=== PATIENT | male | born 2000 | race Hispanic/Latino ===

== ENCOUNTER 2025-03-03 18:02 | Emergency (ER) | payer SELFPAY ==
[~2025-03-03] VITALS: Ht 170.2 cm; Wt 83.9 kg
--- NOTE | 2025-03-03 19:20 | NUR ---
PT PLACED INTO HALLWAY BED AT THIS TIME FROM THE LOBBY, NO SIGNS OF ACUTE DISTRESS NOTED
--- NOTE | 2025-03-03 19:45 | NUR ---
WOUND CARE TO LEFT THUMB DONE AT THIS TIME, TOLERATED WELL
--- NOTE | 2025-03-03 19:46 | ERN ---
ED Note History of Present Illness Stated Complaint: PUNCTURE WOUND BETWEEN LT THUMB AND INDEX FINGER Chief Complaint: Puncture Wound Time Seen by MD: 18:07 Time Seen by Midlevel: 18:07 Dictation: The patient is a 24-year-old male with no past medical history who presents to the emergency department with complaints of wound to his left 1st finger after he accidentally drilled a nail about 30 minutes prior to arrival.. Nail was removed. Patient reports unknown last tetanus. Allergies: Coded Allergies: No Known Allergies (Unverified Allergy, Unknown, 03/03/25) Home Meds Active Scripts Clindamycin HCl (Clindamycin HCl) 300 Mg Capsule, 1 CAP PO QID for 5 Days, #20 CAP 0 Refills Prov:SUSANA PARTIDA STUDENT ADMISSIONS CLERK 03/03/25 Past Medical History Past Medical History: No Pertinent History Surgical History: None RN Note Reviewed/Agreed w/PFSH: Yes Review of System Dictation Constitutional: Negative for fever,chills, and weight loss Eyes: Negative for injury, pain,redness, and discharge ENT: Negative for injury,pain or swelling Cardiovascular: Negative for chest pain, palpitations, and edema Respiratory: Negative for shortness of breath, cough, and wheezing, Abdomen/GI: Negative for abdominal pain, nausea, vomiting, diarrhea, and constipation Back: Negative for injury and pain : Negative for injury, bleeding and discharge MS/Extremity: Negative for injury and deformity Skin: Negative for rash, and discoloration positive for puncture wound to left hand Neuro: Negative for headache, weakness, numbness, tingling, and seizure Psych: Negative for suicide ideation, homicidal ideation, and hallucinations Initial Vital Sign VS Vital Signs Date Time Temp Pulse Resp B/P (MAP) Pulse Ox O2 Delivery O2 Flow Rate FiO2 03/03/25 18:07 97.7 56 20 125/78 99 Room Air 03/03/25 19:30 0 21 Physical Exam Dictation Vital Signs reviewed General Appearance: Alert, oriented x 3, no acute distress, well developed, nourished. Head and Face: non-traumatic. Eyes: PERRL, pink conjunctivas, eyelid no trauma, anterior chamber with arcus senilis. Ears: Pinnas intact and no signs of trauma or erythema ear canals clear and no discharge TM no erythema Nose: No discharge, no bleeding. Oropharynx: Mouth normal, tongue pink. pharynx clear,no erythema, tonsils no exudates, no abscesses noted, mucous membrane moist Neck: Supple, non-tender, no thyromegaly, no masses, no JVD, no bruits Breast:Deferred Chest:No tenderness, no crepitus, no paradoxical movement, no retractions Lungs:Clear, well-ventilated, symmetric, no rales, no wheezing, no rhonchi, no stridor, good breath sounds bilaterally Heart: Regular rate, regular rhythm, no murmur, no gallops Vascular: no peripheral edema, Abdomen: Soft, positive bowel sounds, nondistended, no guarding, nontender, no rebound, no masses no hepatomegaly, no splenomegaly, no Piña's sign, no hernias. Rectal: Deferred Genital: Deferred Neurological: Normal speech, motor function intact, sensory function intact Musculoskeletal: Neck nontender, full range of motion, back nontender, full range of motion, Extremities: nontender, full range of motion Skin: Color pink, dry, no turgor, no rash, no lacerations, no abrasions, no contusions. small less than 0.5cm puncture wound to left 1st finger, no active bleeding. Lymphatic: Deferred Results (Laboratory/Radiology) Laboratory/Radiology REASON: 1st finger injury ORDERING PHYSICIAN: SUSANA PARTIDA STUDENT ADMISSIONS CLERK PROCEDURE: FINGER LT - FINGER(S) 2+VWS LT EXAM: Left finger radiograph 3 view HISTORY: Injury COMPARISON: None TECHNIQUE: AP, lateral, oblique view of the hand FINDINGS: Tiny hyperdense foci noted along the first IP joint. Air seen in the soft tissues. No fracture or dislocation. IMPRESSION: Possible soft tissue injury with possible tiny hyperdense foreign object /[facility] Reviewed?: Yes ED Course ED Course Orders Procedure Category Date Status Time Tetanus,Diphtheria PHA 03/03/25 Complete Tox [Adult] (Diphther 18:30 Finger(S) 2+Vws Lt RAD 03/03/25 Resulted 18:22 Wound Care (Er) CPOE 03/03/25 Transmitted 18:22 Lidocaine Hcl 1% 20ml PHA 03/03/25 In Process Vial (Lidocaine Hc 20:00 Current Medications Medications (Trade) Dose Ordered Sig/Fidel Route PRN Reason Start Time Stop Time Status Last Admin Dose Admin Lidocaine HCl (Lidocaine HCl 1% 20ml Vial) 10 ml ONCE INJ 03/03/25 20:00 03/03/25 23:59 03/03/25 20:04 Tetanus/ Diphtheria Toxoids Adsorbed (DiphthERIA-teTANUS TOXOID [ADULT]/ DECAVAC) 0.5 ml ONCE ONCE IM 03/03/25 18:30 03/03/25 18:31 DC 03/03/25 19:48 Vital Signs Date Time Temp Pulse Resp B/P (MAP) Pulse Ox O2 Delivery O2 Flow Rate FiO2 03/03/25 19:30 98.4 79 18 124/77 97 Room Air* 0 21 03/03/25 18:07 97.7 56 20 125/78 99 Room Air Medical Decision Making MDM The patient is a 24-year-old male with no past medical history who presents to the emergency department with complaints of wound to his left 1st finger after he accidentally drilled a nail about 30 minutes prior to arrival.. Nail was removed. Patient reports unknown last tetanus. Patient with a small puncture wound near the base of the 1st finger. No active bleeding, x-ray showed no fractures. Small foreign body which was attempted to remove patient's wound was sutured. Patient was updated with Tdap. We will be discharged to follow up with PCP. Differential diagnosis: Finger fracture, laceration, puncture wound Need for hospitalization: Patient does not meet criteria for hospitalization. There are no social concerns with this patient. Procedure Procedure Dictation: Time and Date Performed: 03/03/20252021 INDICATION: Laceration Location: Left hand Informed consent was obtained. Pre-procedure time out was obtained. Anesthetic: 1% lidocaine Manual prep of skin and wound was done with hibbarbns. Foreign Body: NO foreign bodies were identified. foreign body attempted removal. Length Repaired:0.5cm Suture used: 3.0 ethylone # of simple sutures:1 Aseptic technique was used during the entire procedure. Wound Location: upper extremity Wound Length (cm): 1 Wound's Depth, Shape: superficial Wound Explored: clean Irrigated w/ Saline (ccs): 50 Betadine Prep?: Yes Anesthesia: 1% Lidocaine Volume Anesthetic (ccs): 10 Wound Debrided: minimal Wound Repaired With: sutures Suture Size/Type: 3:0, nylon Number of Sutures: 1 Layer Closure?: Yes DX & DISP Disposition: Discharge Departure Impression: Primary Impression: Puncture wound of left hand Condition: Stable Scripts Clindamycin HCl (Clindamycin HCl) 300 Mg Capsule 1 CAP PO QID for 5 Days, #20 CAP 0 Refills Prov: SUSANA PARTIDA 03/03/25 Additional Instructions: Keep your stitches clean and dry. Do not put your stitches under water, such as in a bath, pool, or redding. This can slow healing and raise your chance of getting an infection. Avoid activities or sports that could hurt the area of your stitches for 1-2 weeks. You should call your doctor if you develop any fever, redness or swelling around the cut, or pus draining from the cut. Your sutures will need to be removed in 10-14 days. FOLLOW-UP WITH PRIMARY CARE PROVIDER IN 1 TO 2 DAYS. TAKE MEDICATIONS DIRECTED HERE IN THE EMERGENCY ROOM. OKAY TO CONTINUE HOME MEDICATIONS UNLESS OTHERWISE DISCUSSED DURING YOUR VISIT IN THE EMERGENCY ROOM TODAY. RETURN TO YOUR NEAREST EMERGENCY ROOM IF SYMPTOMS WORSEN OR IF THERE IS NO IMPROVEMENT. CALL 911 IF YOU NEED IMMEDIATE ASSISTANCE. TAKE TYLENOL [id number] NEEDED AND IF NO CONTRAINDICATIONS ARE PRESENT. INCREASE ORAL HYDRATION. A WOUND CULTURE OR URINE CULTURE WAS ORDERED HERE IN THE EMERGENCY ROOM DEPARTMENT PLEASE FOLLOW-UP WITH PRIMARY CARE PROVIDER AND ADVISE THEM TO GET REPEAT PORTS FROM OUR FACILITY. IF YOU HAD ANY JENNIFER WRAP/SPLINTS THAT WERE APPLIED HERE, PLEASE DO NOT REMOVE THEM UNTIL YOU SEE YOUR PRIMARY CARE OR SPECIALTY. Referrals: SELF,REFERRAL (PCP) Time of Disposition: 19:45 I have reviewed the case, and I agree with, Diagnosis and Plan SUSANA PARTIDA Mar 03, 2025 19:46
[2025-03-03] MEDS ORDERED: CLIN-141 PO (19:49)
[2025-03-03] MEDS: LIDOCAINE HCL 1% 20 ML VIAL INJ SCH (20:04)
[2025-03-03 20:30] VITALS: BP 121/74; PULSE 74; RESP 17; TEMP 98.6; O2SAT 98
== END 2025-03-03 20:36 | disposition home or self-care (01) ==
LOC: EDH 18:02
DX: S61.412A Laceration without foreign body of left hand, initial encounter (principal); W22.8XXA Striking against or struck by other objects, initial encounter; Y93.89 Activity, other specified; Y92.89 Other specified places as the place of occurrence of the external cause; Y99.8 Other external cause status
CPT/HCPCS: 12001; 73140; 90471; 90714; 99283